=== PATIENT | male | born 1935 | race African-American/Black ===

== ENCOUNTER 2017-06-09 16:31 | Inpatient (IN) | payer OTHER ==
[~2017-06-09] VITALS: Ht 180.3 cm; Wt 129.3 kg
[~2017-06-09 16:31] MED LIST: ASPI-612 PO; BUDE10.2 IH; DUTA0.5C PO; LISI40TA PO; TERA10CA3 PO; THEO400T2 PO
[2017-06-09] MEDS ORDERED: IV NORMAL SALINE 1000ML BAG 1,000 ML IV SCH (16:34)
[2017-06-09] MEDS ORDERED: MORPHINE SULFATE 4 MG/ML DISP.SYRIN. IV/SQ PRN (16:45)
[2017-06-09] MEDS ORDERED: ONDANSETRON PF 4 MG/2 ML VIAL. IV ONE (16:45)
[2017-06-09] MEDS ORDERED: ASPIRIN CHEWABLE 81 MG TABLET. PO ONE (16:45)
[2017-06-09] MEDS ORDERED: dilTIAZem IV PUSH 25 MG/5 ML VIAL ONE (16:47)
--- NOTE | 2017-06-09 16:53 | PHYS DOC ---
Past Medical History Past Medical History: Asthma, Hypertension, Other Additional Past Medical Histor: enlarged prostate Past Surgical History: Cholecystectomy Alcohol Use: None Drug Use: None Adult General Chief Complaint Chief Complaint: CHEST PAIN HPI HPI Patient is a 81 year old male who presents with a 5 day history of shortness of air and chest pain. The patient denies history of atrial fibrillation although his EKG is showing intermittent atrial fibrillation with periods of normal sinus rhythm interspersed with age of fibrillation. The patient reports history of asthma and hypertension but denies previous cardiac history or history of facial for ventilation. The patient's primary care physician is Dr. Ayala over for Dr. Bradshaw. The patient denies nausea, vomiting, fevers or chills. The patient denies missing any of his home meds. This reports chest pain is substernal. The patient denies radiation of the chest pain. The patient reports the dyspnea and chest pain are worse when he is exerting himself and better when he is at rest. Review of Systems Review of Systems Constitutional: Denies fever or chills [] Eyes: Denies change in visual acuity, redness, or eye pain [] HENT: Denies nasal congestion or sore throat [] Respiratory: Denies cough or shortness of breath [] Cardiovascular: No additional information not addressed in HPI [] GI: Denies abdominal pain, nausea, vomiting, bloody stools or diarrhea [] : Denies dysuria or hematuria [] Musculoskeletal: Denies back pain or joint pain [] Integument: Denies rash or skin lesions [] Neurologic: Denies headache, focal weakness or sensory changes [] Endocrine: Denies polyuria or polydipsia [] Current Medications Current Medications Current Medications Medications (Trade) Dose Ordered Sig/Hillary Start Time Stop Time Status Last Admin Dose Admin Acetaminophen (Tylenol) 650 mg PRN Q4HRS PRN 06/09/17 18:30 06/10/17 18:29 Aspirin (Children'S Aspirin) 324 mg 1X ONCE 06/09/17 16:45 06/09/17 16:46 DC 06/09/17 16:53 324 MG Diltiazem HCl (Cardizem) 25 mg STK-MED ONCE 06/09/17 16:47 06/09/17 16:48 DC Diltiazem HCl 125 mg/Dextrose 125 ml @ 0 mls/hr CONT PRN 06/09/17 18:30 06/09/17 18:43 0 MLS/HR Furosemide (Lasix) 40 mg 1X ONCE 06/09/17 18:30 06/09/17 18:31 DC 06/09/17 18:44 40 MG Morphine Sulfate 4 mg PRN Q2HR PRN 06/09/17 18:30 06/10/17 18:29 Nitroglycerin (Nitro-Bid Oint) 1 inch 1X ONCE 06/09/17 18:30 06/09/17 18:31 DC 06/09/17 20:26 1 INCH Nitroglycerin (Nitrostat) 0.4 mg PRN Q5MIN PRN 06/09/17 18:30 06/10/17 18:29 Ondansetron HCl (Zofran) 4 mg PRN Q8HRS PRN 06/09/17 18:30 06/10/17 18:29 Sodium Chloride 1,000 ml @ 1,000 mls/hr Q1H 06/09/17 16:34 06/09/17 17:33 DC 06/09/17 16:53 1,000 MLS/HR Allergies Allergies Allergies Coded Allergies Type Severity Reaction Last Updated Verified No Known Drug Allergies 09/03/14 No Physical Exam Physical Exam Constitutional: Well developed, well nourished, no acute distress, non-toxic appearance. [] HENT: Normocephalic, atraumatic, bilateral external ears normal, oropharynx moist, no oral exudates, nose normal. [] Eyes: PERRLA, EOMI, conjunctiva normal, no discharge. [] Neck: Normal range of motion, no tenderness, supple, no stridor. [] Cardiovascular:Heart rate regular rhythm, no murmur [] Lungs & Thorax: Bilateral breath sounds clear to auscultation [] Abdomen: Bowel sounds normal, soft, no tenderness, no masses, no pulsatile masses. [] Skin: Warm, dry, no erythema, no rash. [] Back: No tenderness, no CVA tenderness. [] Extremities: No tenderness, no cyanosis, no clubbing, ROM intact, no edema. [] Neurologic: Alert and oriented X 3, normal motor function, normal sensory function, no focal deficits noted. [] Psychologic: Affect normal, judgement normal, mood normal. [] Current Patient Data Vital Signs Vital Signs Date Time Temp Pulse Resp B/P (MAP) Pulse Ox O2 Delivery O2 Flow Rate FiO2 06/09/17 18:00 72 172/97 (122) 96 06/09/17 17:35 16 Room Air 06/09/17 16:52 99.0 2.0 99.0 Lab Values Laboratory Tests Test 06/09/17 16:40 06/09/17 16:48 White Blood Count 7.2 x10^3/uL (4.0-11.0) Red Blood Count 4.91 x10^6/uL (4.30-5.70) Hemoglobin 14.2 g/dL (13.0-17.5) Hematocrit 44.3 % (39.0-53.0) Mean Corpuscular Volume 90 fL (79-100) Mean Corpuscular Hemoglobin 29 pg (25-35) Mean Corpuscular Hemoglobin Concent 32 g/dL (31-37) Red Cell Distribution Width 13.9 % (11.5-14.5) Platelet Count 205 x10^3/uL (140-400) Neutrophils (%) (Auto) 67 % (31-73) Lymphocytes (%) (Auto) 18 % (24-48) L Monocytes (%) (Auto) 11 % (0-9) H Eosinophils (%) (Auto) 3 % (0-3) Basophils (%) (Auto) 1 % (0-3) Neutrophils # (Auto) 4.9 x10^3uL (1.8-7.7) Lymphocytes # (Auto) 1.3 x10^3/uL (1.0-4.8) Monocytes # (Auto) 0.8 x10^3/uL (0.0-1.1) Eosinophils # (Auto) 0.2 x10^3/uL (0.0-0.7) Basophils # (Auto) 0.0 x10^3/uL (0.0-0.2) Prothrombin Time 12.8 SEC (11.7-14.0) Prothrombin Time INR 1.0 (0.8-1.1) Sodium Level 141 mmol/L (136-145) Potassium Level 3.7 mmol/L (3.5-5.1) Chloride Level 102 mmol/L (98-107) Carbon Dioxide Level 33 mmol/L (21-32) H Anion Gap 6 (6-14) 14 mmol/L (6-14) Blood Urea Nitrogen 11 mg/dL (8-26) Creatinine 1.3 mg/dL (0.7-1.3) Estimated GFR (Cockcroft-Gault) 63.9 BUN/Creatinine Ratio 8 (6-20) Glucose Level 102 mg/dL (70-99) H 100 mg/dL (70-99) H Calcium Level 9.3 mg/dL (8.5-10.1) Magnesium Level 2.0 mg/dL (1.8-2.4) Total Bilirubin 0.7 mg/dL (0.2-1.0) Aspartate Amino Transferase (AST) 26 U/L (15-37) Alanine Aminotransferase (ALT) 18 U/L (16-63) Alkaline Phosphatase 75 U/L (46-116) Creatine Kinase 421 U/L (39-308) H Creatine Kinase MB (Mass) 2.1 ng/mL (0.0-3.6) Creatine Kinase MB Relative Index 0.5 % (0-4) Troponin I Quantitative 0.036 ng/mL (0.000-0.055) OX-Lfw-B-Type Natriuretic Peptide 271 pg/mL (0-449) Total Protein 7.7 g/dL (6.4-8.2) Albumin 3.8 g/dL (3.4-5.0) Albumin/Globulin Ratio 1.0 (1.0-1.7) POC Hemoglobin 15.6 g/dL (14-18) POC Hematocrit 46 % (37-52) POC Sodium 141 mmol/L (135-145) POC Potassium 3.8 mmol/L (3.5-5.0) POC Chloride 101 mmol/L (98-110) POC Total CO2 31 mmol/L (23-32) POC Blood Urea Nitrogen 9 mg/dL (8-26) POC Creatinine 1.3 mg/dL (0.5-1.4) POC Ionized Calcium (Kortney) 1.22 mmol/L (1.13-1.32) POC Troponin I 0.03 ng/ml (<0.08) Laboratory Tests 06/09/17 16:40 Laboratory Tests 06/09/17 16:40 06/09/17 16:48 EKG EKG EKG read at 4:37 PM on June 09, 2017 displays a regular rhythm at each of fibrillation with interspersed normal sinus rhythm. The heart rate is 104 bpm the QRS duration is 92 ms The patient's rhythm strip during my history and physical on approximately 4:52 PM displays normal sinus rhythm with very infrequent episodes of each of fibrillation. interpreted by Dr. Harden and Mirela Radiology/Procedures Radiology/Procedures Chest x-ray displays increased lung markings and mild cardiomegaly consistent with acute diastolic congestive heart failure[] Course & Med Decision Making Course & Med Decision Making Pertinent Labs and Imaging studies reviewed. (See chart for details) The patient works improvement with diltiazem drip and oxygen therapies.[] Dragon Disclaimer Dragon Disclaimer This electronic medical record was generated, in whole or in part, using a voice recognition dictation system. Departure Departure Impression: Primary Impression: Atrial fibrillation with rapid ventricular response Additional Impressions: Elevated troponin I level Chest pain Disposition: ADMITTED INPATIENT Admitting Physician: Ruby Tate Condition: STABLE Referrals: UNKNOWN PCP NAME (PCP) Problem Qualifiers FORD PARSON MD Jun 09, 2017 16:53
[2017-06-09 17:00] LABS: BASO % 1 % (0-3); EOS % 3 % (0-3); HEMATOCRIT 44.3 % (39.0-53.0); HEMOGLOBIN 14.2 g/dL (13.0-17.5); LYMPH # 1.3 x10^3/uL (1.0-4.8); LYMPH % 18 % (24-48); MEAN CORPUSCULAR HEMOGLOBIN 29 pg (25-35); MEAN CORPUSCULAR HGB CONC 32 g/dL (31-37); MEAN CORPUSCULAR VOLUME 90 fL (79-100); MONO % 11 % (0-9); NEUT % 67 % (31-73); PLATELET COUNT 205 x10^3/uL (140-400); RED BLOOD COUNT 4.91 x10^6/uL (4.30-5.70); RED CELL DISTRIBUTION WIDTH 13.9 % (11.5-14.5); WHITE BLOOD COUNT 7.2 x10^3/uL (4.0-11.0)
[2017-06-09 17:09] LABS: PROTHROMBIN TIME PATIENT 12.8 SEC (11.7-14.0)
[2017-06-09 17:22] LABS: ALBUMIN 3.8 g/dL (3.4-5.0); CALCIUM 9.3 mg/dL (8.5-10.1); CREATININE 1.3 mg/dL (0.7-1.3); GFR 63.9; POTASSIUM 3.7 mmol/L (3.5-5.1); TOTAL BILIRUBIN 0.7 mg/dL (0.2-1.0); TOTAL PROTEIN 7.7 g/dL (6.4-8.2)
[2017-06-09 17:32] LABS: CKMB MASS 2.1 ng/mL (0.0-3.6)
[2017-06-09 17:36] LABS: POTASSIUM ISTAT 3.8 mmol/L (3.5-5.0)
[2017-06-09] MEDS ORDERED: ONDANSETRON PF 4 MG/2 ML VIAL. IV PRN (18:30)
[2017-06-09] MEDS ORDERED: MORPHINE SULFATE 4 MG/ML DISP.SYRIN. IV PRN (18:30)
[2017-06-09] MEDS ORDERED: NITROGLYCERIN SUBLINGUAL 0.4 MG BOTTLE OF 25. SL PRN (18:30)
[2017-06-09] MEDS ORDERED: NITROGLYCERIN OINT 1 GM PACKET. TP ONE (18:30)
[2017-06-09] MEDS ORDERED: FUROSEMIDE 40 MG TABLET. PO ONE (18:30)
[2017-06-09] MEDS ORDERED: ACETAMINOPHEN 325 MG TABLET. PO PRN (18:30)
[2017-06-09] MEDS ORDERED: IPRATRPIUM/ALBUTEROL 0.5/2.5MG 3 ML NEBU. NEB SCH (20:00)
[2017-06-09 20:51] VITALS: BP 150/90
[2017-06-09 21:30] VITALS: BP 145/80
[2017-06-09 22:30] VITALS: BP 148/84
[2017-06-09] MEDS ORDERED: THEOPHYLLINE ANHYDROUS 200 MG PO SCH (22:45)
--- NOTE | 2017-06-09 22:49 | PDOC1 ---
History and Physical Date of Admission Date of Admission DATE: 06/09/17 TIME: 22:38 History of Present Illness History of Present Illness MR. Masterson, is a 81 year old male admit with worsening shortness of air and chest pain. Pain has worsened over 5 days, seen having Afib in the ER. The patient denies history of atrial fibrillation alt with sinus. Pain improved now on the floor The patient reports history of asthma and hypertension but denies previous cardiac history or history of facial for ventilation. PCP is Dr. Reyez reports chest pain is substernal w/o radiation was 5/10, mostly gone. 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 Past Medical History Cardiovascular: HTN Pulmonary: Asthma ENT: No pertinent hx Renal/: No pertinent hx Endocrine: No pertinent hx Past Surgical History Past Surgical History: Cholecystectomy Family History Family History: Heart Disease, Hypertension Social History Smoke: No ALCOHOL: none Drugs: None Current Problem List Problem List Problems Medical Problems: (1) Atrial fibrillation with rapid ventricular response Status: Acute (2) Chest pain Status: Acute (3) Elevated troponin I level Status: Acute Problems: Current Medications Current Medications Current Medications Aspirin (Children'S Aspirin) 324 mg 1X ONCE PO Last administered on 16:53; Start 06/09/17 at 16:45; Stop 06/09/17 at 16:46; Status DC Morphine Sulfate 4 mg PRN Q15MIN PRN IV/SQ PAIN GREATER THAN 3/10 Last administered on 06/09/17 16:54; Start 06/09/17 at 16:45; Stop 06/10/17 at 16 :44 Sodium Chloride 1,000 ml @ 1,000 mls/hr Q1H IV Last administered on 16:53; Start 06/09/17 at 16:34; Stop 06/09/17 at 17:33; Status DC Ondansetron HCl (Zofran) 8 mg 1X ONCE IV Last administered on 06/09/17 16:53 ; Start 06/09/17 at 16:45; Stop 06/09/17 at 16:46; Status DC Diltiazem HCl (Cardizem) 25 mg STK-MED ONCE .ROUTE ; Start 06/09/17 at 16:47; Stop 06/09/17 at 16:48; Status DC Ondansetron HCl (Zofran) 4 mg PRN Q8HRS PRN IV NAUSEA/VOMITING; Start at 18:30; Stop 06/10/17 at 18:29 Morphine Sulfate 4 mg PRN Q2HR PRN IV PAIN; Start 06/09/17 at 18:30; Stop at 18:29 Acetaminophen (Tylenol) 650 mg PRN Q4HRS PRN PO FEVER; Start 06/09/17 at 18:30 ; Stop 06/10/17 at 18:29 Nitroglycerin (Nitrostat) 0.4 mg PRN Q5MIN PRN SL CHEST PAIN; Start 06/09/17 at 18:30; Stop 06/10/17 at 18:29 Albuterol/ Ipratropium (Duoneb) 3 ml RTQID NEB Last administered on 06/09/17 20:56; Start 06/09/17 at 20:00; Stop 06/10/17 at 19:59 Furosemide (Lasix) 40 mg 1X ONCE PO Last administered on 06/09/17 18:44; Start 06/09/17 at 18:30; Stop 06/09/17 at 18:31; Status DC Nitroglycerin (Nitro-Bid Oint) 1 inch 1X ONCE TP Last administered on 20:26; Start 06/09/17 at 18:30; Stop 06/09/17 at 18:31; Status DC Diltiazem HCl 125 mg/Dextrose 125 ml @ 0 mls/hr CONT PRN IV SEE I/O RECORD Last administered on 06/09/17 18:43; Start 06/09/17 at 18:30 Active Scripts Active Aspirin Ec (Aspirin) 81 Mg Tablet. 1 Tab PO DAILY Reported Avodart (Dutasteride) 0.5 Mg Capsule 1 Cap PO DAILY Terazosin Hcl 10 Mg Capsule 1 Cap PO DAILY Lisinopril 40 Mg Tablet 1 Tab PO DAILY Theophylline (Theophylline Anhydrous) 400 Mg Tablet.er 200 Mg PO TWICE DAILY Symbicort 160-4.5 Mcg Inhaler (Budesonide/Formoterol Fumarate) 10.2 Gm Hfa.aer.ad 2 Puff IH BID Allergies Allergies: Coded Allergies: No Known Drug Allergies (Unverified , 1/19/15) ROS Review of System The patient denies nausea, vomiting, fevers or chills. General: YES: Fatigue, No: Chills, Night Sweats, Malaise, Appetite, Other PSYCHOLOGICAL ROS: No: Anxiety, Behavioral Disorder, Concentration difficultie , Decreased libido, Depression, Disorientation, Hallucinations, Hostility, Irritablity, Memory difficulties, Mood Swings, Obsessive thoughts, Suicidal ideation, Other Eyes: No Blurry vision, No Decreased vision, No Double vision, No Dry eyes, No Excessive tearing, No Eye Pain, No Itchy Eyes, No Loss of vision, No Photophobia , No Scotomata, No Uses contacts, No Uses glasses, No Other HEENT: No: Heacaches, Visual Changes, Hearing change, Nasal congestion, Nasal discharge, Oral lesions, Sinus pain, Sore Throat, Epistaxis, Sneezing, Snoring, Tinnitus, Vertigo, Vocal changes, Other Hematological and Lymphatic: No: Bleeding Problems, Blood Clots, Blood Transfusions, Brusing, Night Sweats, Pallor, Swollen Lymph Nodes, Other Respiratory: No: Cough, Hemoptysis, Orthopnea, Pleuritic Pain, Shortness of breath, SOB with excertion, Sputum Changes, Stridor, Tachypnea, Wheezing, Other Cardiovascular: yes Chest Pain, yes Palpitations, No Orthopnea, No Paroxysmal Noc. Dyspnea, No Edema, No Lt Headedness, No Other Gastrointestinal: No Nausea, No Vomiting, No Abdominal Pain, No Diarrhea, No Constipation, No Melena, No Hematochezia, No Other Genitourinary: No Dysuria, No Frequency, No Incontinence, No Hematuria, No Retention, No Discharge, No Urgency, No Pain, No Flank Pain, No Other, No , No , No , No , No , No , No Musculoskeletal: Yes Joint Stiffness, No Gait Disturbance, No Joint Pain, No Joint Swelling, No Muscle Pain, No Muscular Weakness, No Pain In:, No Swelling In:, No Other Skin: No Dry Skin, No Eczema, No Hair Changes, No Lumps, No Mole Changes, No Mottling, No Nail Changes, No Pruritus, No Rash, No Skin Lesion Changes, No Other, No Acne Physical Exam General: Alert, Oriented X3, Cooperative, No acute distress HEENT: Atraumatic, PERRLA, EOMI Lungs: Clear to auscultation, Normal air movement Heart: no gallops, no murmurs Extremities: No edema, Normal pulses Skin: No significant lesion Neuro: Normal tone, Sensation intact Psych/Mental Status: Mental status NL, Mood NL Vitals Vitals Vital Signs Date Time Temp Pulse Resp B/P (MAP) Pulse Ox O2 Delivery O2 Flow Rate FiO2 06/09/17 20:58 97 Nasal Cannula 2.0 06/09/17 20:51 98.2 59 20 150/90 (110) 98.2 Labs Labs Laboratory Tests Test 06/09/17 16:40 06/09/17 16:48 White Blood Count 7.2 x10^3/uL (4.0-11.0) Red Blood Count 4.91 x10^6/uL (4.30-5.70) Hemoglobin 14.2 g/dL (13.0-17.5) Hematocrit 44.3 % (39.0-53.0) Mean Corpuscular Volume 90 fL (79-100) Mean Corpuscular Hemoglobin 29 pg (25-35) Mean Corpuscular Hemoglobin Concent 32 g/dL (31-37) Red Cell Distribution Width 13.9 % (11.5-14.5) Platelet Count 205 x10^3/uL (140-400) Neutrophils (%) (Auto) 67 % (31-73) Lymphocytes (%) (Auto) 18 % (24-48) Monocytes (%) (Auto) 11 % (0-9) Eosinophils (%) (Auto) 3 % (0-3) Basophils (%) (Auto) 1 % (0-3) Neutrophils # (Auto) 4.9 x10^3uL (1.8-7.7) Lymphocytes # (Auto) 1.3 x10^3/uL (1.0-4.8) Monocytes # (Auto) 0.8 x10^3/uL (0.0-1.1) Eosinophils # (Auto) 0.2 x10^3/uL (0.0-0.7) Basophils # (Auto) 0.0 x10^3/uL (0.0-0.2) Prothrombin Time 12.8 SEC (11.7-14.0) Prothromb Time International Ratio 1.0 (0.8-1.1) Sodium Level 141 mmol/L (136-145) Potassium Level 3.7 mmol/L (3.5-5.1) Chloride Level 102 mmol/L (98-107) Carbon Dioxide Level 33 mmol/L (21-32) Anion Gap 6 (6-14) 14 mmol/L (6-14) Blood Urea Nitrogen 11 mg/dL (8-26) Creatinine 1.3 mg/dL (0.7-1.3) Estimated GFR (Cockcroft-Gault) 63.9 BUN/Creatinine Ratio 8 (6-20) Glucose Level 102 mg/dL (70-99) 100 mg/dL (70-99) Calcium Level 9.3 mg/dL (8.5-10.1) Magnesium Level 2.0 mg/dL (1.8-2.4) Total Bilirubin 0.7 mg/dL (0.2-1.0) Aspartate Amino Transf (AST/SGOT) 26 U/L (15-37) Alanine Aminotransferase (ALT/SGPT) 18 U/L (16-63) Alkaline Phosphatase 75 U/L (46-116) Creatine Kinase 421 U/L (39-308) Creatine Kinase MB (Mass) 2.1 ng/mL (0.0-3.6) Creatine Kinase MB Relative Index 0.5 % (0-4) Troponin I Quantitative 0.036 ng/mL (0.000-0.055) PD-Dsq-M-Type Natriuretic Peptide 271 pg/mL (0-449) Total Protein 7.7 g/dL (6.4-8.2) Albumin 3.8 g/dL (3.4-5.0) Albumin/Globulin Ratio 1.0 (1.0-1.7) Bedside Hemoglobin 15.6 g/dL (14-18) Bedside Hematocrit 46 % (37-52) Bedside Sodium 141 mmol/L (135-145) Bedside Potassium 3.8 mmol/L (3.5-5.0) Bedside Chloride 101 mmol/L (98-110) Bedside Total CO2 31 mmol/L (23-32) Bedside Blood Urea Nitrogen 9 mg/dL (8-26) Bedside Creatinine 1.3 mg/dL (0.5-1.4) Bedside Ionized Calcium (Kortney) 1.22 mmol/L (1.13-1.32) Bedside Troponin I 0.03 ng/ml (<0.08) Laboratory Tests Test 06/09/17 16:40 06/09/17 16:48 White Blood Count 7.2 x10^3/uL (4.0-11.0) Red Blood Count 4.91 x10^6/uL (4.30-5.70) Hemoglobin 14.2 g/dL (13.0-17.5) Hematocrit 44.3 % (39.0-53.0) Mean Corpuscular Volume 90 fL (79-100) Mean Corpuscular Hemoglobin 29 pg (25-35) Mean Corpuscular Hemoglobin Concent 32 g/dL (31-37) Red Cell Distribution Width 13.9 % (11.5-14.5) Platelet Count 205 x10^3/uL (140-400) Neutrophils (%) (Auto) 67 % (31-73) Lymphocytes (%) (Auto) 18 % (24-48) Monocytes (%) (Auto) 11 % (0-9) Eosinophils (%) (Auto) 3 % (0-3) Basophils (%) (Auto) 1 % (0-3) Neutrophils # (Auto) 4.9 x10^3uL (1.8-7.7) Lymphocytes # (Auto) 1.3 x10^3/uL (1.0-4.8) Monocytes # (Auto) 0.8 x10^3/uL (0.0-1.1) Eosinophils # (Auto) 0.2 x10^3/uL (0.0-0.7) Basophils # (Auto) 0.0 x10^3/uL (0.0-0.2) Prothrombin Time 12.8 SEC (11.7-14.0) Prothromb Time International Ratio 1.0 (0.8-1.1) Sodium Level 141 mmol/L (136-145) Potassium Level 3.7 mmol/L (3.5-5.1) Chloride Level 102 mmol/L (98-107) Carbon Dioxide Level 33 mmol/L (21-32) Anion Gap 6 (6-14) 14 mmol/L (6-14) Blood Urea Nitrogen 11 mg/dL (8-26) Creatinine 1.3 mg/dL (0.7-1.3) Estimated GFR (Cockcroft-Gault) 63.9 BUN/Creatinine Ratio 8 (6-20) Glucose Level 102 mg/dL (70-99) 100 mg/dL (70-99) Calcium Level 9.3 mg/dL (8.5-10.1) Magnesium Level 2.0 mg/dL (1.8-2.4) Total Bilirubin 0.7 mg/dL (0.2-1.0) Aspartate Amino Transf (AST/SGOT) 26 U/L (15-37) Alanine Aminotransferase (ALT/SGPT) 18 U/L (16-63) Alkaline Phosphatase 75 U/L (46-116) Creatine Kinase 421 U/L (39-308) Creatine Kinase MB (Mass) 2.1 ng/mL (0.0-3.6) Creatine Kinase MB Relative Index 0.5 % (0-4) Troponin I Quantitative 0.036 ng/mL (0.000-0.055) ZX-Lkq-R-Type Natriuretic Peptide 271 pg/mL (0-449) Total Protein 7.7 g/dL (6.4-8.2) Albumin 3.8 g/dL (3.4-5.0) Albumin/Globulin Ratio 1.0 (1.0-1.7) Bedside Hemoglobin 15.6 g/dL (14-18) Bedside Hematocrit 46 % (37-52) Bedside Sodium 141 mmol/L (135-145) Bedside Potassium 3.8 mmol/L (3.5-5.0) Bedside Chloride 101 mmol/L (98-110) Bedside Total CO2 31 mmol/L (23-32) Bedside Blood Urea Nitrogen 9 mg/dL (8-26) Bedside Creatinine 1.3 mg/dL (0.5-1.4) Bedside Ionized Calcium (Kortney) 1.22 mmol/L (1.13-1.32) Bedside Troponin I 0.03 ng/ml (<0.08) VTE Prophylaxis Ordered VTE Prophylaxis Devices: Yes VTE Pharmacological Prophylaxi: No Assessment/Plan Assessment/Plan acute chest pain afib RVR acute distolic CHF, ROLAND YOUNG MD Jun 09, 2017 22:49
[2017-06-09] MEDS ORDERED: ALBUTEROL SULFATE 2.5 MG/3 ML NEBU. NEB PRN (23:00)
[2017-06-09 23:48] VITALS: BP 170/85
[2017-06-10] VITALS (10 sets, daily range): BP systolic 139–169; BP diastolic 68–95
[2017-06-10 07:11] LABS: BASO % 1 % (0-3); EOS % 1 % (0-3); HEMATOCRIT 42.4 % (39.0-53.0); HEMOGLOBIN 13.6 g/dL (13.0-17.5); LYMPH # 0.7 x10^3/uL (1.0-4.8); LYMPH % 10 % (24-48); MEAN CORPUSCULAR HEMOGLOBIN 29 pg (25-35); MEAN CORPUSCULAR HGB CONC 32 g/dL (31-37); MEAN CORPUSCULAR VOLUME 91 fL (79-100); MONO % 8 % (0-9); NEUT % 80 % (31-73); PLATELET COUNT 192 x10^3/uL (140-400); RED BLOOD COUNT 4.68 x10^6/uL (4.30-5.70); RED CELL DISTRIBUTION WIDTH 13.9 % (11.5-14.5); WHITE BLOOD COUNT 7.3 x10^3/uL (4.0-11.0)
--- NOTE | 2017-06-10 07:25 | EKG ---
[facility] [address] [place] [address] Test Date: 2017-06-09 Test Time: 16:36:00 Pat Name: TYRELL CHENG Department: Room: 201 1 Gender: M Picker / Packer: : [phone] Requested By: FORD PARSON Order Number: [id number] Reading MD: Laura Beavers Measurements Intervals [place] Rate: 104 P: AK: QRS: -38 QRSD: 92 T: 77 QT: 326 QTc: 429 Interpretive Statements SINUS RHYTHM PROXYSMAL ATRIAL TACHYCARDIA ABNORMAL LEFT AXIS DEVIATION LEFT ANTERIOR FASCICULAR BLOCK QRS(T) CONTOUR ABNORMALITY CONSIDER ANTEROSEPTAL MYOCARDIAL DAMAGE ST & T ABNORMALITY, CONSIDER HIGH LATERAL ISCHEMIA ABNORMAL ECG Electronically Signed On 06-12-2017 14:47:50 CDT by Laura Beavers
[2017-06-10 07:26] LABS: ALBUMIN 3.5 g/dL (3.4-5.0); ALBUMIN/GLOBULIN RATIO 1.1 (1.0-1.7); CALCIUM 8.9 mg/dL (8.5-10.1); CREATININE 1.3 mg/dL (0.7-1.3); GFR 63.9; POTASSIUM 4.6 mmol/L (3.5-5.1); TOTAL BILIRUBIN 0.8 mg/dL (0.2-1.0); TOTAL PROTEIN 6.8 g/dL (6.4-8.2)
[2017-06-10] MEDS: IPRATRPIUM/ALBUTEROL 0.5/2.5MG 3 ML NEBU. NEB SCH ×4 (07:29→20:08)
[2017-06-10] MEDS: BUDESONIDE 0.5 MG/2 ML NEBU. NEB SCH ×2 (08:00→20:08)
--- NOTE | 2017-06-10 08:17 | RAD ---
Portable chest, 06/09/2017: History: Chest pain, epigastric pain Comparison is made to a study from 09/03/2014. The heart is mildly enlarged. There is calcific plaquing and tortuosity of the thoracic aorta. The pulmonary vascularity is at the upper limits of normal. There is loss of definition of the left hemidiaphragm, similar to that seen on the previous exam. The portable technique and a prominent epicardial fat pad is probably contributing to this appearance. Mild left basilar atelectasis/infiltrate cannot be excluded. The lungs are otherwise clear. There is no evidence of pleural fluid. IMPRESSION: 1. Mild cardiomegaly and aortic atherosclerosis. 2. Borderline vascular congestion.
[2017-06-10] MEDS: THEOPHYLLINE 12HR ER 300 MG TAB.ER.12H. PO SCH ×2 (09:00→20:40)
--- NOTE | 2017-06-10 09:13 | CARD ---
APPROVED REPORT EXAM: Two-dimensional and M-mode echocardiogram with Doppler and color Doppler. Other Information Quality : Average Rhythm : NSR INDICATION Atrial Fibrillation Hypertension/HCVD 2D DIMENSIONS RVDd3.8 (2.9-3.5cm)Left Atrium(2D)3.3 (1.6-4.0cm) IVSd1.3 (0.7-1.1cm)Aortic Root(2D)3.7 (2.0-3.7cm) LVDd4.7 (3.9-5.9cm)LVOT Diameter2.5 (1.8-2.4cm) PWd1.3 (0.7-1.1cm)LVDs3.4 (2.5-4.0cm) FS (%) 27.6 %SV53.7 ml LVEF(%)53.6 (>50%) Aortic Valve AoV Peak Hemal.157.9cm/sAoV VTI25.9cm AO Peak GR.10.0mmHgLVOT VTI 18.02cm AO Mean GR.7mmHgAVA (VTI)3.40cm2 Mitral Valve MV E Mlqhfxof15.5cm/sMV E Peak Gr.1mmHg MV DECEL [id number] A Oeadmvwj44.5cm/s MV OIX29duC/A Ratio1.0 MV A [id number] (PHT)3.55cm2 TDI Lateral E' P. V7.40cm/sMedial E' P. V7.20cm/s E/Lateral E'8.9E/Medial E'9.1 Tricuspid Valve TR P. Afosbsuj292lh/sRAP [id number] TR Peak Gr.74dpWfUDQJ15auPy LEFT VENTRICLE The left ventricle is normal size. There is borderline to mild concentric left ventricular hypertroph y. Left ventricle systolic function is normal. The Ejection Fraction is 50-55%. There is normal LV se gmental wall motion. The left ventricular diastolic function and filling is normal for age. RIGHT VENTRICLE The right ventricle is normal size. The right ventricular systolic function is normal. ATRIA The left atrium size is normal. The right atrium size is normal. The interatrial septum is intact wit h no evidence for an atrial septal defect or patent foramen ovale as noted on 2-D or Doppler imaging. AORTIC VALVE The aortic valve is normal in structure and function. The aortic valve is trileaflet. Doppler and Col or Flow revealed no significant aortic regurgitation. There is no significant aortic valvular stenosi s. MITRAL VALVE The mitral valve is normal in structure and function. There is no mitral valve stenosis. Doppler and Color Flow revealed mild mitral regurgitation. TRICUSPID VALVE The tricuspid valve is normal in structure and function. Doppler and Color Flow revealed trace tricus pid regurgitation. The PA pressure was estimated at 26 mmHg. There is no tricuspid valve stenosis. PULMONIC VALVE The pulmonic valve is not well visualized. Doppler and Color Flow revealed no pulmonic valvular regur gitation. There is no pulmonic valvular stenosis. 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 The IVC is normal in size and collapses >50% with inspiration. PERICARDIAL EFFUSION There is no evidence of significant pericardial effusion. Critical Notification Critical Value: No <Conclusion> There is borderline to mild concentric left ventricular hypertrophy. Left ventricle systolic function is normal. The Ejection Fraction is 50-55%. There is normal LV segmental wall motion. 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
--- NOTE | 2017-06-10 10:12 | PDOC2 ---
VICKI BECKFORD AIR BRAKE RIGGER 06/10/17 1012: CARDIAC CONSULT DATE OF CONSULT Date of Consult DATE: 06/10/17 TIME: 09:22 REASON FOR CONSULT Reason for Consult: PAFIB REFERRING PHYSICIAN Referring Physician: Bebeto SOURCE Source: Chart review, Patient HISTORY OF PRESENT ILLNESS HISTORY OF PRESENT ILLNESS This is a pleasant 81 yo male admitted for complains of CP. Reports that it felt like he was shaking and nonradiating. It was achy as he described it and no prior ischemic workup and does not follow any operator assistant i cementing. He has been having intermittent episodes of this and yesterday lasted about 20 minutes to which it was associated with SOA. Possible nausea but otherwise no frequent dizziness. He is positive for MCCLAIN. Denies any prior falls, injury, syncope, CAD , VTE, PUD, CVA. Also reports that his Asthma is well controlled. PAST MEDICAL HISTORY Cardiovascular: HTN, Other (palpitations) Pulmonary: Asthma CENTRAL NERVOUS SYSTEM: Other (No pertinent history) GI: No pertinent hx Heme/Onc: No pertinent hx Hepatobiliary: No pertinent hx Psych: No pertinent hx Musculoskeletal: Osteoarthritis Rheumatologic: No pertinent hx Infectious disease: No pertinent hx ENT: No pertinent hx Renal/: Benign prostatic enlarg. Endocrine: No pertinent hx Dermatology: No pertinent hx PAST SURGICAL HISTORY Past Surgical History: Cholecystectomy FAMILY HISTORY Family History: Coronary Artery Disease (father), Stroke (brother and sister) SOCIAL HISTORY Smoke: Quit (very remote) ALCOHOL: none Drugs: None Lives: with Family CURRENT MEDICATIONS CURRENT MEDICATIONS Current Medications Medications (Trade) Dose Ordered Sig/Hillary Route PRN Reason Start Time Stop Time Status Last Admin Dose Admin Aspirin (Children'S Aspirin) 324 mg 1X ONCE PO 06/09/17 16:45 06/09/17 16:46 DC 06/09/17 16:53 Morphine Sulfate 4 mg PRN Q15MIN PRN IV/SQ PAIN GREATER THAN 3/10 06/09/17 16:45 06/10/17 16:44 06/09/17 16:54 Sodium Chloride 1,000 ml @ 1,000 mls/hr Q1H IV 06/09/17 16:34 06/09/17 17:33 DC 06/09/17 16:53 Ondansetron HCl (Zofran) 8 mg 1X ONCE IV 06/09/17 16:45 06/09/17 16:46 DC 06/09/17 16:53 Albuterol/ Ipratropium (Duoneb) 3 ml RTQID NEB 06/09/17 20:00 06/09/17 22:49 DC 06/09/17 20:56 Furosemide (Lasix) 40 mg 1X ONCE PO 06/09/17 18:30 06/09/17 18:31 DC 06/09/17 18:44 Nitroglycerin (Nitro-Bid Oint) 1 inch 1X ONCE TP 06/09/17 18:30 06/09/17 18:31 DC 06/09/17 20:26 Diltiazem HCl 125 mg/Dextrose 125 ml @ 0 mls/hr CONT PRN IV SEE I/O RECORD 06/09/17 18:30 06/09/17 18:43 Budesonide (Pulmicort) 0.5 mg RTBID NEB 06/10/17 08:00 06/10/17 08:00 Albuterol/ Ipratropium (Duoneb) 3 ml RTQID NEB 06/10/17 08:00 06/10/17 07:29 ALLERGIES ALLERGIES: Coded Allergies: No Known Drug Allergies (Unverified , 09/03/14) ROS Review of System 14 point ROS evaluated with pertinent positives noted per HPI PHYSICAL EXAM General: Alert, Oriented X3, Cooperative, No acute distress HEENT: Atraumatic, Mucous membr. moist/pink Lungs: Clear to auscultation, Normal air movement Heart: Regular rate (SR), Normal S1, Normal S2, Other (2/6 systolic murmur to LLS border) Abdomen: Soft, No tenderness Extremities: No cyanosis, No edema Skin: No breakdown, No significant lesion Neuro: Normal speech, Sensation intact Psych/Mental Status: Mental status NL, Mood NL MUSCULOSKELETAL: Osteoarthritic changes both hands VITALS VITALS Vital Signs Date Time Temp Pulse Resp B/P (MAP) Pulse Ox O2 Delivery O2 Flow Rate FiO2 06/10/17 07:31 92 Nasal Cannula 3.0 06/10/17 06:29 139/68 (91) 06/10/17 05:29 72 06/09/17 23:48 98.0 20 98.0 LABS Lab: Laboratory Tests Test 06/09/17 16:40 06/09/17 16:48 06/09/17 23:50 10/26/17 06:35 White Blood Count 7.2 x10^3/uL (4.0-11.0) 7.3 x10^3/uL (4.0-11.0) Red Blood Count 4.91 x10^6/uL (4.30-5.70) 4.68 x10^6/uL (4.30-5.70) Hemoglobin 14.2 g/dL (13.0-17.5) 13.6 g/dL (13.0-17.5) Hematocrit 44.3 % (39.0-53.0) 42.4 % (39.0-53.0) Mean Corpuscular Volume 90 fL (79-100) 91 fL (79-100) Mean Corpuscular Hemoglobin 29 pg (25-35) 29 pg (25-35) Mean Corpuscular Hemoglobin Concent 32 g/dL (31-37) 32 g/dL (31-37) Red Cell Distribution Width 13.9 % (11.5-14.5) 13.9 % (11.5-14.5) Platelet Count 205 x10^3/uL (140-400) 192 x10^3/uL (140-400) Neutrophils (%) (Auto) 67 % (31-73) 80 % (31-73) Lymphocytes (%) (Auto) 18 % (24-48) 10 % (24-48) Monocytes (%) (Auto) 11 % (0-9) 8 % (0-9) Eosinophils (%) (Auto) 3 % (0-3) 1 % (0-3) Basophils (%) (Auto) 1 % (0-3) 1 % (0-3) Neutrophils # (Auto) 4.9 x10^3uL (1.8-7.7) 5.8 x10^3uL (1.8-7.7) Lymphocytes # (Auto) 1.3 x10^3/uL (1.0-4.8) 0.7 x10^3/uL (1.0-4.8) Monocytes # (Auto) 0.8 x10^3/uL (0.0-1.1) 0.6 x10^3/uL (0.0-1.1) Eosinophils # (Auto) 0.2 x10^3/uL (0.0-0.7) 0.1 x10^3/uL (0.0-0.7) Basophils # (Auto) 0.0 x10^3/uL (0.0-0.2) 0.0 x10^3/uL (0.0-0.2) Prothrombin Time 12.8 SEC (11.7-14.0) Prothromb Time International Ratio 1.0 (0.8-1.1) Sodium Level 141 mmol/L (136-145) 141 mmol/L (136-145) Potassium Level 3.7 mmol/L (3.5-5.1) 4.6 mmol/L (3.5-5.1) Chloride Level 102 mmol/L (98-107) 102 mmol/L (98-107) Carbon Dioxide Level 33 mmol/L (21-32) 36 mmol/L (21-32) Anion Gap 6 (6-14) 14 mmol/L (6-14) 3 (6-14) Blood Urea Nitrogen 11 mg/dL (8-26) 9 mg/dL (8-26) Creatinine 1.3 mg/dL (0.7-1.3) 1.3 mg/dL (0.7-1.3) Estimated GFR (Cockcroft-Gault) 63.9 63.9 BUN/Creatinine Ratio 8 (6-20) 7 (6-20) Glucose Level 102 mg/dL (70-99) 100 mg/dL (70-99) 105 mg/dL (70-99) Calcium Level 9.3 mg/dL (8.5-10.1) 8.9 mg/dL (8.5-10.1) Magnesium Level 2.0 mg/dL (1.8-2.4) Total Bilirubin 0.7 mg/dL (0.2-1.0) 0.8 mg/dL (0.2-1.0) Aspartate Amino Transf (AST/SGOT) 26 U/L (15-37) 23 U/L (15-37) Alanine Aminotransferase (ALT/SGPT) 18 U/L (16-63) 18 U/L (16-63) Alkaline Phosphatase 75 U/L (46-116) 67 U/L (46-116) Creatine Kinase 421 U/L (39-308) Creatine Kinase MB (Mass) 2.1 ng/mL (0.0-3.6) Creatine Kinase MB Relative Index 0.5 % (0-4) Troponin I Quantitative 0.036 ng/mL (0.000-0.055) 0.019 ng/mL (0.000-0.055) < 0.017 ng/mL (0.000-0.055) IP-Sex-I-Type Natriuretic Peptide 271 pg/mL (0-449) Total Protein 7.7 g/dL (6.4-8.2) 6.8 g/dL (6.4-8.2) Albumin 3.8 g/dL (3.4-5.0) 3.5 g/dL (3.4-5.0) Albumin/Globulin Ratio 1.0 (1.0-1.7) 1.1 (1.0-1.7) Bedside Hemoglobin 15.6 g/dL (14-18) Bedside Hematocrit 46 % (37-52) Bedside Sodium 141 mmol/L (135-145) Bedside Potassium 3.8 mmol/L (3.5-5.0) Bedside Chloride 101 mmol/L (98-110) Bedside Total CO2 31 mmol/L (23-32) Bedside Blood Urea Nitrogen 9 mg/dL (8-26) Bedside Creatinine 1.3 mg/dL (0.5-1.4) Bedside Ionized Calcium (Kortney) 1.22 mmol/L (1.13-1.32) Bedside Troponin I 0.03 ng/ml (<0.08) ECHOCARDIOGRAM ECHOCARDIOGRAM <Conclusion> There is borderline to mild concentric left ventricular hypertrophy. Left ventricle systolic function is normal. The Ejection Fraction is 50-55%. There is normal LV segmental wall motion. 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 DATE: 06/10/17912 <Conclusion> The left ventricular systolic function is normal and the ejection fraction is within normal range. The Ejection Fraction is 60-65%. There is mild to moderate concentric left ventricular hypertrophy. The left atrium is mildly dilated. Doppler and Color-flow revealed mild mitral regurgitation. Doppler and Color Flow revealed mild tricuspid regurgitation. The PA pressure was estimated at 37 mmHg. The aortic root is mildly enlarged. The ascending aorta is moderately dilated. The IVC is normal in size and collapses >50% with inspiration. There is no evidence of significant pericardial effusion. DATE: 09/04/14 1626 ASSESSMENT/PLAN ASSESSMENT/PLAN 1. Chest pain: troponin series normal. 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 2. AFIB: Deemed new onset and paroxysmal. no EKG nor tele strip to review. Per ED report noted with RVR. Presently SR with with occasional PACs. No prior hx. 3. Accelerated HTN: Improved 4. Acute diastolic CHF: mild and compensated after x1 dose of lasix. 5. Dilated ascending aorta: 4.8 cm 6. Hx of Asthma: pt is on symbicort as well as theophylline which could very well induce SVT. Defer to PCP. 7. 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 8. Morbid obesity and suspecting LAURA Off note: He was an inpt in 08/2014 for palpitations, no evidence of arrhythmias at that time and event monitor was suggested but failed to follow up. Recommendations 1. MPI today 2. Arrange for outpt event monitor. Will check AFIB burden and reevaluate NOAC needs as an outpt. 3. Will do CTA to further evaluate thoracic aorta once MPI result is noted 4. TSH, Lipid panel, BNP 5. Start on ECASA 81 mg. 6. Will DC cardizem drip and will start on PO metoprolol and titrate lisinopril dosing per BP response. Problems: AJITH GARRIDO MD 06/10/17 1400: CARDIAC CONSULT ALLERGIES ALLERGIES: Coded Allergies: No Known Drug Allergies (Unverified , 09/03/14) ASSESSMENT/PLAN ASSESSMENT/PLAN Pt. seen and examined. 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 MPI today, evaluate ascending aorta. Supportive care. Thanks for consultation. Problems: VICKI BECKFORD APRN Jun 10, 2017 10:12 AJITH GARRIDO MD Jun 10, 2017 14:00
--- NOTE | 2017-06-10 10:26 | EKG ---
[facility] [address] [place] [address] Test Date: 2017-06-09 Test Time: 16:57:16 Pat Name: TYRELL CHENG Department: Room: 201 1 Gender: M Financial Supervisor: : 1935 Requested By: ROLAND YOUNG Order Number: [id number] Reading MD: Laura Beavers Measurements Intervals Mcgrady Rate: 69 P: -43 OK: 232 QRS: -36 QRSD: 94 T: 65 QT: 392 QTc: 422 Interpretive Statements SINUS RHYTHM ATRIAL PREMATURE COMPLEX(ES) PROLONGED OK INTERVAL ABNORMAL LEFT AXIS DEVIATION CONSIDER LEFT VENTRICULAR HYPERTROPHY T ABNORMALITY IN HIGH LATERAL LEADS ABNORMAL ECG Electronically Signed On 06-12-2017 14:49:45 CDT by Laura Beavers
[2017-06-10 10:27] LABS: CHOLESTEROL/HDL RATIO 4.7
[2017-06-10] MEDS ORDERED: REGADENOSON 0.4 MG/5 ML DISP.SYRIN. IV ONE (10:30)
[2017-06-10] MEDS: ENOXAPARIN 40 MG/0.4 ML SYRINGE. SQ SCH ×2 (13:08→20:41)
[2017-06-10] MEDS: DUTASTERIDE 0.5 MG CAPSULE PO SCH (13:08)
[2017-06-10] MEDS: LISINOPRIL 10 MG TABLET PO SCH (13:08)
[2017-06-10] MEDS: ASPIRIN ENTERIC COATED 81 MG TABLET.DR. PO SCH (13:08)
--- NOTE | 2017-06-10 13:30 | PDOC ---
PROGRESS NOTES Chief Complaint Chief Complaint Acute chest pain ASSESSMENT AND PLAN: 1. CP: ruled out for ACS by enzymes. 2ary prevention meds 2. Afib: new, apparently paroxysmal - currently in SR. Arrange for outpt event monitor. TSH WNL 3. Accelerated HTN: improved; lisinopril, BB 4. Acute diastolic CHF: remains o2 dependent. cont IV lasix. await CTA (see below) 5. CAD: LAFB/first degree AV block and above issues. MPI today 6. Dilated ascending aorta: 4.8 cm; rpt CTA 7. Asthma: pt is on symbicort as well as theophylline which could very well induce SVT. 8. ?LAURA: pulm F/U for W/U 9. HLD: start statin 10. Morbid obesity: nutrition consult History of Present Illness History of Present Illness denies SOB, byt becomes hypoxic w/suppl O2. no CP, abd pain Vitals Vitals Vital Signs Date Time Temp Pulse Resp B/P (MAP) Pulse Ox O2 Delivery O2 Flow Rate FiO2 06/10/17 13:08 72 139/68 06/10/17 11:28 89 Nasal Cannula 3.0 06/09/17 23:48 98.0 20 98.0 Physical Exam General: Alert, Oriented X3, Cooperative, No acute distress Heart: Regular rate (SR), Other (2/6 systolic murmur to LLS border) Lungs: Clear Abdomen: Normal bowel sounds, Soft, No tenderness Extremities: No edema Skin: No rashes Labs LABS Laboratory Tests Test 06/09/17 16:40 06/09/17 16:48 06/09/17 23:50 06/10/17 06:35 White Blood Count 7.2 x10^3/uL (4.0-11.0) 7.3 x10^3/uL (4.0-11.0) Red Blood Count 4.91 x10^6/uL (4.30-5.70) 4.68 x10^6/uL (4.30-5.70) Hemoglobin 14.2 g/dL (13.0-17.5) 13.6 g/dL (13.0-17.5) Hematocrit 44.3 % (39.0-53.0) 42.4 % (39.0-53.0) Mean Corpuscular Volume 90 fL (79-100) 91 fL (79-100) Mean Corpuscular Hemoglobin 29 pg (25-35) 29 pg (25-35) Mean Corpuscular Hemoglobin Concent 32 g/dL (31-37) 32 g/dL (31-37) Red Cell Distribution Width 13.9 % (11.5-14.5) 13.9 % (11.5-14.5) Platelet Count 205 x10^3/uL (140-400) 192 x10^3/uL (140-400) Neutrophils (%) (Auto) 67 % (31-73) 80 % (31-73) Lymphocytes (%) (Auto) 18 % (24-48) 10 % (24-48) Monocytes (%) (Auto) 11 % (0-9) 8 % (0-9) Eosinophils (%) (Auto) 3 % (0-3) 1 % (0-3) Basophils (%) (Auto) 1 % (0-3) 1 % (0-3) Neutrophils # (Auto) 4.9 x10^3uL (1.8-7.7) 5.8 x10^3uL (1.8-7.7) Lymphocytes # (Auto) 1.3 x10^3/uL (1.0-4.8) 0.7 x10^3/uL (1.0-4.8) Monocytes # (Auto) 0.8 x10^3/uL (0.0-1.1) 0.6 x10^3/uL (0.0-1.1) Eosinophils # (Auto) 0.2 x10^3/uL (0.0-0.7) 0.1 x10^3/uL (0.0-0.7) Basophils # (Auto) 0.0 x10^3/uL (0.0-0.2) 0.0 x10^3/uL (0.0-0.2) Prothrombin Time 12.8 SEC (11.7-14.0) Prothromb Time International Ratio 1.0 (0.8-1.1) Sodium Level 141 mmol/L (136-145) 141 mmol/L (136-145) Potassium Level 3.7 mmol/L (3.5-5.1) 4.6 mmol/L (3.5-5.1) Chloride Level 102 mmol/L (98-107) 102 mmol/L (98-107) Carbon Dioxide Level 33 mmol/L (21-32) 36 mmol/L (21-32) Anion Gap 6 (6-14) 14 mmol/L (6-14) 3 (6-14) Blood Urea Nitrogen 11 mg/dL (8-26) 9 mg/dL (8-26) Creatinine 1.3 mg/dL (0.7-1.3) 1.3 mg/dL (0.7-1.3) Estimated GFR (Cockcroft-Gault) 63.9 63.9 BUN/Creatinine Ratio 8 (6-20) 7 (6-20) Glucose Level 102 mg/dL (70-99) 100 mg/dL (70-99) 105 mg/dL (70-99) Calcium Level 9.3 mg/dL (8.5-10.1) 8.9 mg/dL (8.5-10.1) Magnesium Level 2.0 mg/dL (1.8-2.4) Total Bilirubin 0.7 mg/dL (0.2-1.0) 0.8 mg/dL (0.2-1.0) Aspartate Amino Transf (AST/SGOT) 26 U/L (15-37) 23 U/L (15-37) Alanine Aminotransferase (ALT/SGPT) 18 U/L (16-63) 18 U/L (16-63) Alkaline Phosphatase 75 U/L (46-116) 67 U/L (46-116) Creatine Kinase 421 U/L (39-308) Creatine Kinase MB (Mass) 2.1 ng/mL (0.0-3.6) Creatine Kinase MB Relative Index 0.5 % (0-4) Troponin I Quantitative 0.036 ng/mL (0.000-0.055) 0.019 ng/mL (0.000-0.055) < 0.017 ng/mL (0.000-0.055) OC-Uki-Q-Type Natriuretic Peptide 271 pg/mL (0-449) Total Protein 7.7 g/dL (6.4-8.2) 6.8 g/dL (6.4-8.2) Albumin 3.8 g/dL (3.4-5.0) 3.5 g/dL (3.4-5.0) Albumin/Globulin Ratio 1.0 (1.0-1.7) 1.1 (1.0-1.7) Bedside Hemoglobin 15.6 g/dL (14-18) Bedside Hematocrit 46 % (37-52) Bedside Sodium 141 mmol/L (135-145) Bedside Potassium 3.8 mmol/L (3.5-5.0) Bedside Chloride 101 mmol/L (98-110) Bedside Total CO2 31 mmol/L (23-32) Bedside Blood Urea Nitrogen 9 mg/dL (8-26) Bedside Creatinine 1.3 mg/dL (0.5-1.4) Bedside Ionized Calcium (Kortney) 1.22 mmol/L (1.13-1.32) Bedside Troponin I 0.03 ng/ml (<0.08) Triglycerides Level 90 mg/dL (0-150) Cholesterol Level 205 mg/dL (0-200) LDL Cholesterol, Calculated 143 mg/dL (0-100) VLDL Cholesterol, Calculated 18 mg/dL (0-40) Non-HDL Cholesterol Calculated 161 mg/dL (0-129) HDL Cholesterol 44 mg/dL (40-60) Cholesterol/HDL Ratio 4.7 Thyroid Stimulating Hormone (TSH) 1.124 uIU/mL (0.358-3.74) PAULA RODAS MD Jun 10, 2017 13:30
--- NOTE | 2017-06-10 15:53 | RAD ---
APPROVED REPORT Test Type: Exercise Stress Nurse/Tech: Tiff Serrano R.N. Test Indications: dyspnea, c/p Cardiac History: No known cardiac Medications: See Electronic Medical Record Medical History: See Electronic Medical Record Resting ECG: SrR w/ 1st degree AVB, reyes is 0.22- inverted T waves in leads AVR, AVL . inverted R waves in leads II,III, AVF, V3-V6. slight ST elevation in lead V3 Resting Heart Rate: 60 bpm Resting Blood Pressure: 132/64mmHg Pretest Chest Pain: No chest pain Nurse/Tech Notes S1S2, lungs CTA but deminished. SPO2 was 91% on 3 L n/c Consent: The procedure was explained to the patient in lay terms. Informed consent was witnessed. Adrien eout was entered into [employer]. History and Stress Test performed by RT Robbie (Ashish) (N) Pharm. Details Pharmacologic stress testing was performed using 0.4mg per 5ml of regadenoson given intravenously ove r 7-10 seconds. Stress Symptoms pt stated he felt SOB but it was not worse than prior to lexiscan even though he appeared more so. R waves that had been inverted in leads II, V3-V6 became upright post lexiscan POST EXERCISE Reason for Termination: Infusion complete Max HR: 98 bpm Max Blood Pressure: 129/57mmHg Blood Pressure response to exercise: Normal blood pressure response during stress. Heart Rate response to exercise: wnl Chest Pain: No. Arrhythmia: Yes. started having noted pac's ST Change: No. INTERPRETATION Stress EKG Conclusion: No evidence of stress induced EKG changes. Imaging Protocol IMAGE PROTOCOL: Stress Tc-99m/rest Tc-99m 2 days Rest: Stress: Viability: Radiopharm.Tc99m Sestamibi [id number] Img Date 06/10/2017 Inj-Img [id number]. Stress Admin Site: IV - Left AntecubitalAdministrator: RT Robbie (R)(N) STRESS DATA End Diast. Vol.174.0mlAv. Heart Rate66.0bpm End Syst. Vol.71.0mlCO Index BSA0.0L/min Myocardial Vwfp308.0gEject. Iruwkdmo51.0% Stress Rates Pk. Fill Rate2.42EDV/secLVtime Pk. Fill 179.55msec Pk. Empty Rate2.97ESV/secLVtime Pk. Bpegp589.09msec 08/18 Pk. Fill1.12EDV/sec Stress Scores Regional WT0.00Summed WT7.00 Regional WM0.00Summed WM0.00 LV Perfusion Normal perfusion at stress. Wall Motion Normal wall motion. LV Perf. Quant 17 Seg. SSS0.00 Stress Defect Extent (% LAD)0.00Rest Defect Extent (% LAD)Rev. Defect Extent (% LAD)0.00 Stress Defect Extent (% LCX) 0.00Rest Defect Extent (% LCX)Rev. Defect Extent (% LCX)0.00 Stress Defect Extent (% RCA)0.00Rest Defect Extent (% RCA)Rev. Defect Extent (% RCA)0.00 Stress Defect Extent (% COLEEN)0.00Rest Defect Extent (% COLEEN)Rev. Defect Extent (% COLEEN)0.00 Other Information Quality:Average Risk Assessment: Low Risk Conclusion 1. No evidence of EKG changes with stress testing. 2. Normal perfusion at stress. 3. Low risk study. 4. EF > 60%.
[2017-06-10] MEDS ORDERED: FUROSEMIDE 40 MG/4 ML VIAL. IVP ONE (16:15)
[2017-06-10] MEDS ORDERED: CONTRAST GIVEN MC PRN (17:30)
[2017-06-10] MEDS ORDERED: IOHEXOL 300 MG/ML 75 ML VIAL IV ONE (17:30)
[2017-06-10] MEDS: METOPROLOL TART IMMED RELEASE 25 MG TABLET. PO SCH (20:41)
[2017-06-10] MEDS ORDERED: TERAZOSIN 5 MG CAPSULE. PO SCH (21:00)
[2017-06-11 03:48] VITALS: BP 139/62
[2017-06-11 05:13] LABS: BASO % 1 % (0-3); EOS % 1 % (0-3); HEMATOCRIT 41.3 % (39.0-53.0); HEMOGLOBIN 13.2 g/dL (13.0-17.5); LYMPH # 0.8 x10^3/uL (1.0-4.8); LYMPH % 9 % (24-48); MEAN CORPUSCULAR HEMOGLOBIN 29 pg (25-35); MEAN CORPUSCULAR HGB CONC 32 g/dL (31-37); MEAN CORPUSCULAR VOLUME 92 fL (79-100); MONO % 12 % (0-9); NEUT % 78 % (31-73); PLATELET COUNT 196 x10^3/uL (140-400); RED BLOOD COUNT 4.51 x10^6/uL (4.30-5.70); RED CELL DISTRIBUTION WIDTH 13.6 % (11.5-14.5); WHITE BLOOD COUNT 9.5 x10^3/uL (4.0-11.0)
[2017-06-11 05:55] LABS: ALBUMIN 3.4 g/dL (3.4-5.0); ALBUMIN/GLOBULIN RATIO 0.9 (1.0-1.7); CREATININE 1.3 mg/dL (0.7-1.3); GFR 63.9; POTASSIUM 4.2 mmol/L (3.5-5.1); TOTAL BILIRUBIN 1.1 mg/dL (0.2-1.0); TOTAL PROTEIN 7.2 g/dL (6.4-8.2)
[2017-06-11] MEDS: BUDESONIDE 0.5 MG/2 ML NEBU. NEB SCH (06:59)
[2017-06-11] MEDS: IPRATRPIUM/ALBUTEROL 0.5/2.5MG 3 ML NEBU. NEB SCH ×3 (06:59→15:42)
[2017-06-11 07:00] VITALS: BP 156/67
--- NOTE | 2017-06-11 08:03 | RAD ---
CT of the chest with contrast, 06/10/2017: History: Dilated thoracic aorta Multidetector CT imaging was performed following an IV bolus injection of iodinated contrast material. Multiplanar reconstructions were then produced including 3-D volume rendered reconstructions of the aorta. There is moderate calcific plaquing of the thoracic aorta. The ascending aorta measures 4.9 cm in width. The aortic arch measures 4.0 cm in width. The descending thoracic aorta is mildly tortuous and measures 3.7 cm in width. There is no evidence of aortic dissection. The origins of the cervicocephalic arteries from the aortic arch are widely patent. The heart is generally enlarged. A few scattered coronary artery calcifications are noted. No mediastinal or hilar adenopathy is seen. The depth of inspiration is poor. There are moderate bilateral lower lung pulmonary opacities compatible with atelectasis. A component of pneumonia cannot be excluded. No significant volume of pleural fluid is evident. Moderate multilevel degenerative changes are present in the spine. IMPRESSION: 1. Aortic atherosclerosis with dilatation of the ascending aorta. 2. Cardiomegaly with mild coronary artery calcifications. 3. Suboptimal inspiration with moderate bibasilar atelectasis. PQRS Compliance Statement: One or more of the following individualized dose reduction techniques were utilized for this examination: 1. Automated exposure control 2. Adjustment of the mA and/or kV according to patient size 3. Use of iterative reconstruction technique
[2017-06-11] MEDS: ASPIRIN ENTERIC COATED 81 MG TABLET.DR. PO SCH (08:18)
[2017-06-11] MEDS: METOPROLOL TART IMMED RELEASE 25 MG TABLET. PO SCH (08:19)
[2017-06-11] MEDS: DUTASTERIDE 0.5 MG CAPSULE PO SCH (08:19)
[2017-06-11] MEDS: LISINOPRIL 10 MG TABLET PO SCH (08:19)
[2017-06-11] MEDS: THEOPHYLLINE 12HR ER 300 MG TAB.ER.12H. PO SCH (08:20)
[2017-06-11] MEDS: ENOXAPARIN 40 MG/0.4 ML SYRINGE. SQ SCH (08:20)
[2017-06-11 11:00] VITALS: BP 137/70
--- NOTE | 2017-06-11 12:53 | PDOC ---
PROGRESS NOTES Chief Complaint Chief Complaint Acute chest pain ASSESSMENT AND PLAN: 1. CP: ruled out for ACS by enzymes. 2ary prevention meds 2. Afib: new, apparently paroxysmal - currently in SR. Arrange for outpt event monitor. TSH WNL 3. Accelerated HTN: improved; lisinopril, BB 4. Acute diastolic CHF: remains o2 dependent. cont IV lasix. CTA yesterday poor inspiration, but no significant infiltrates (basilar atelectasis); no evidence of PE by my review 5. CAD: LAFB/first degree AV block and above issues. MPI today 6. Dilated ascending aorta: CTA up to 4.9 cm; root on echo about 3.7 cm 7. Asthma: pt is on symbicort as well as theophylline which could very well induce SVT - ?hypoxia due to exacerbation, but pt asymptomatic; denies having been admitted for exacerbations in past 8. ?LAURA: pulm F/U for W/U 9. HLD: start statin 10. Morbid obesity: nutrition consult History of Present Illness History of Present Illness denies SOB, byt becomes hypoxic w/suppl O2. no CP, abd pain Vitals Vitals Vital Signs Date Time Temp Pulse Resp B/P (MAP) Pulse Ox O2 Delivery O2 Flow Rate FiO2 06/11/17 11:32 Nasal Cannula 3.0 06/11/17 11:00 97.6 55 20 137/70 (92) 93 97.6 Physical Exam General: Alert, Oriented X3, Cooperative, No acute distress Heart: Regular rate, Other (2/6 systolic murmur to LLS border) Lungs: Clear Abdomen: Normal bowel sounds, Soft, No tenderness Extremities: No edema Skin: No rashes Labs LABS Laboratory Tests Test 06/11/17 03:45 06/11/17 03:50 Sodium Level 138 mmol/L (136-145) Potassium Level 4.2 mmol/L (3.5-5.1) Chloride Level 99 mmol/L (98-107) Carbon Dioxide Level 37 mmol/L (21-32) Anion Gap 2 (6-14) Blood Urea Nitrogen 10 mg/dL (8-26) Creatinine 1.3 mg/dL (0.7-1.3) Estimated GFR (Cockcroft-Gault) 63.9 BUN/Creatinine Ratio 8 (6-20) Glucose Level 117 mg/dL (70-99) Calcium Level 9.0 mg/dL (8.5-10.1) Magnesium Level 2.0 mg/dL (1.8-2.4) Total Bilirubin 1.1 mg/dL (0.2-1.0) Aspartate Amino Transf (AST/SGOT) 23 U/L (15-37) Alanine Aminotransferase (ALT/SGPT) 17 U/L (16-63) Alkaline Phosphatase 67 U/L (46-116) Total Protein 7.2 g/dL (6.4-8.2) Albumin 3.4 g/dL (3.4-5.0) Albumin/Globulin Ratio 0.9 (1.0-1.7) White Blood Count 9.5 x10^3/uL (4.0-11.0) Red Blood Count 4.51 x10^6/uL (4.30-5.70) Hemoglobin 13.2 g/dL (13.0-17.5) Hematocrit 41.3 % (39.0-53.0) Mean Corpuscular Volume 92 fL (79-100) Mean Corpuscular Hemoglobin 29 pg (25-35) Mean Corpuscular Hemoglobin Concent 32 g/dL (31-37) Red Cell Distribution Width 13.6 % (11.5-14.5) Platelet Count 196 x10^3/uL (140-400) Neutrophils (%) (Auto) 78 % (31-73) Lymphocytes (%) (Auto) 9 % (24-48) Monocytes (%) (Auto) 12 % (0-9) Eosinophils (%) (Auto) 1 % (0-3) Basophils (%) (Auto) 1 % (0-3) Neutrophils # (Auto) 7.4 x10^3uL (1.8-7.7) Lymphocytes # (Auto) 0.8 x10^3/uL (1.0-4.8) Monocytes # (Auto) 1.2 x10^3/uL (0.0-1.1) Eosinophils # (Auto) 0.1 x10^3/uL (0.0-0.7) Basophils # (Auto) 0.0 x10^3/uL (0.0-0.2) PAULA RODAS MD Jun 11, 2017 12:53
[2017-06-11 14:46] VITALS: BP 137/70
--- NOTE | 2017-06-11 14:55 | PDOC ---
VICKI BECKFORD INSPECTOR ALUMINUM BOAT 06/11/17 1455: CARDIO Progress Notes Date and Time Date of Service 06/11/2017 Time of Evaluation 1430 Subjective Subjective: No Chest Pain, No shortness of breath, No Palpitations Vitals Vitals Vital Signs Date Time Temp Pulse Resp B/P (MAP) Pulse Ox O2 Delivery O2 Flow Rate FiO2 06/11/17 11:32 Nasal Cannula 3.0 06/11/17 11:00 97.6 55 20 137/70 (92) 93 97.6 Weight Weight [ ] Input and Output Intake and Output Intake and Output 06/12/17 07:00 Output Total 500 ml Balance -500 ml Output Urine Total 500 ml Laboratory Labs Laboratory Tests Test 06/11/17 03:45 06/11/17 03:50 Sodium Level 138 mmol/L (136-145) Potassium Level 4.2 mmol/L (3.5-5.1) Chloride Level 99 mmol/L (98-107) Carbon Dioxide Level 37 mmol/L (21-32) Anion Gap 2 (6-14) Blood Urea Nitrogen 10 mg/dL (8-26) Creatinine 1.3 mg/dL (0.7-1.3) Estimated GFR (Cockcroft-Gault) 63.9 BUN/Creatinine Ratio 8 (6-20) Glucose Level 117 mg/dL (70-99) Calcium Level 9.0 mg/dL (8.5-10.1) Magnesium Level 2.0 mg/dL (1.8-2.4) Total Bilirubin 1.1 mg/dL (0.2-1.0) Aspartate Amino Transf (AST/SGOT) 23 U/L (15-37) Alanine Aminotransferase (ALT/SGPT) 17 U/L (16-63) Alkaline Phosphatase 67 U/L (46-116) Total Protein 7.2 g/dL (6.4-8.2) Albumin 3.4 g/dL (3.4-5.0) Albumin/Globulin Ratio 0.9 (1.0-1.7) White Blood Count 9.5 x10^3/uL (4.0-11.0) Red Blood Count 4.51 x10^6/uL (4.30-5.70) Hemoglobin 13.2 g/dL (13.0-17.5) Hematocrit 41.3 % (39.0-53.0) Mean Corpuscular Volume 92 fL (79-100) Mean Corpuscular Hemoglobin 29 pg (25-35) Mean Corpuscular Hemoglobin Concent 32 g/dL (31-37) Red Cell Distribution Width 13.6 % (11.5-14.5) Platelet Count 196 x10^3/uL (140-400) Neutrophils (%) (Auto) 78 % (31-73) Lymphocytes (%) (Auto) 9 % (24-48) Monocytes (%) (Auto) 12 % (0-9) Eosinophils (%) (Auto) 1 % (0-3) Basophils (%) (Auto) 1 % (0-3) Neutrophils # (Auto) 7.4 x10^3uL (1.8-7.7) Lymphocytes # (Auto) 0.8 x10^3/uL (1.0-4.8) Monocytes # (Auto) 1.2 x10^3/uL (0.0-1.1) Eosinophils # (Auto) 0.1 x10^3/uL (0.0-0.7) Basophils # (Auto) 0.0 x10^3/uL (0.0-0.2) Physical Exam HEENT: Neck Supple W Full Motion Chest: Symmetric LUNGS: Other (diminished bases) Heart: S1S2, RRR (SR) Abdomen: Soft N/T Extremities: No Calf Tenderness Neurology: alert, oriented, follow commands Assessment Assessment 1. Chest pain: troponin series normal. 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 Could be from palpitations. MPI normal. 2. Tachyarrhythmia: Possible PSVT. No signs of AFIB. Burst of SVT but likely MAT as well. SB in the 50s. Will need to rule out any tachybrady issues. 3. Accelerated HTN: Controlled 4. Acute diastolic CHF: compensated. 5. Dilated ascending/descending aorta: ascending 4.9 cm in width. The aortic arch measures 4.0 cm in width. Descending thoracic aorta measures 3.7 cm in width. 6. Hx of Asthma: pt is on symbicort as well as theophylline which could very well induce SVT. Defer to PCP. 7. 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 8. Morbid obesity and suspecting LAURA: pulmonary consulted. Recommendations 1. Outpt event monitor. 2. Follow up aorta imaging in 6 months. 3. Start on statin. Continue on ECASA 81 mg. 4. Continue on lisinopril and metoprolol. 5. F/U in office in 4-5 weeks. AJITH GARRIDO MD 06/11/17 1800: CARDIO Progress Notes Plan Plan Pt. seen and examined. Agree with above [employer] note. Supportive care. f/u in the office after event monitor. ascending aorta dilation may be normal for him given his size. VICKI BECKFORD APRN Jun 11, 2017 14:55 AJITH GARRIDO MD Jun 11, 2017 18:00
--- NOTE | 2017-06-11 16:41 | PDOC ---
PULMONARY PROGRESS NOTES Vitals Vital Signs Date Time Temp Pulse Resp B/P (MAP) Pulse Ox O2 Delivery O2 Flow Rate FiO2 06/11/17 15:43 Nasal Cannula 3.0 06/11/17 14:46 98.1 58 22 137/70 (92) 94 98.1 Lungs: Clear Labs Laboratory Tests Test 06/09/17 16:40 06/09/17 16:48 06/09/17 23:50 06/10/17 06:35 White Blood Count 7.2 x10^3/uL (4.0-11.0) 7.3 x10^3/uL (4.0-11.0) Red Blood Count 4.91 x10^6/uL (4.30-5.70) 4.68 x10^6/uL (4.30-5.70) Hemoglobin 14.2 g/dL (13.0-17.5) 13.6 g/dL (13.0-17.5) Hematocrit 44.3 % (39.0-53.0) 42.4 % (39.0-53.0) Mean Corpuscular Volume 90 fL (79-100) 91 fL (79-100) Mean Corpuscular Hemoglobin 29 pg (25-35) 29 pg (25-35) Mean Corpuscular Hemoglobin Concent 32 g/dL (31-37) 32 g/dL (31-37) Red Cell Distribution Width 13.9 % (11.5-14.5) 13.9 % (11.5-14.5) Platelet Count 205 x10^3/uL (140-400) 192 x10^3/uL (140-400) Neutrophils (%) (Auto) 67 % (31-73) 80 % (31-73) Lymphocytes (%) (Auto) 18 % (24-48) 10 % (24-48) Monocytes (%) (Auto) 11 % (0-9) 8 % (0-9) Eosinophils (%) (Auto) 3 % (0-3) 1 % (0-3) Basophils (%) (Auto) 1 % (0-3) 1 % (0-3) Neutrophils # (Auto) 4.9 x10^3uL (1.8-7.7) 5.8 x10^3uL (1.8-7.7) Lymphocytes # (Auto) 1.3 x10^3/uL (1.0-4.8) 0.7 x10^3/uL (1.0-4.8) Monocytes # (Auto) 0.8 x10^3/uL (0.0-1.1) 0.6 x10^3/uL (0.0-1.1) Eosinophils # (Auto) 0.2 x10^3/uL (0.0-0.7) 0.1 x10^3/uL (0.0-0.7) Basophils # (Auto) 0.0 x10^3/uL (0.0-0.2) 0.0 x10^3/uL (0.0-0.2) Prothrombin Time 12.8 SEC (11.7-14.0) Prothromb Time International Ratio 1.0 (0.8-1.1) Sodium Level 141 mmol/L (136-145) 141 mmol/L (136-145) Potassium Level 3.7 mmol/L (3.5-5.1) 4.6 mmol/L (3.5-5.1) Chloride Level 102 mmol/L (98-107) 102 mmol/L (98-107) Carbon Dioxide Level 33 mmol/L (21-32) 36 mmol/L (21-32) Anion Gap 6 (6-14) 14 mmol/L (6-14) 3 (6-14) Blood Urea Nitrogen 11 mg/dL (8-26) 9 mg/dL (8-26) Creatinine 1.3 mg/dL (0.7-1.3) 1.3 mg/dL (0.7-1.3) Estimated GFR (Cockcroft-Gault) 63.9 63.9 BUN/Creatinine Ratio 8 (6-20) 7 (6-20) Glucose Level 102 mg/dL (70-99) 100 mg/dL (70-99) 105 mg/dL (70-99) Calcium Level 9.3 mg/dL (8.5-10.1) 8.9 mg/dL (8.5-10.1) Magnesium Level 2.0 mg/dL (1.8-2.4) Total Bilirubin 0.7 mg/dL (0.2-1.0) 0.8 mg/dL (0.2-1.0) Aspartate Amino Transf (AST/SGOT) 26 U/L (15-37) 23 U/L (15-37) Alanine Aminotransferase (ALT/SGPT) 18 U/L (16-63) 18 U/L (16-63) Alkaline Phosphatase 75 U/L (46-116) 67 U/L (46-116) Creatine Kinase 421 U/L (39-308) Creatine Kinase MB (Mass) 2.1 ng/mL (0.0-3.6) Creatine Kinase MB Relative Index 0.5 % (0-4) Troponin I Quantitative 0.036 ng/mL (0.000-0.055) 0.019 ng/mL (0.000-0.055) < 0.017 ng/mL (0.000-0.055) OC-Iky-S-Type Natriuretic Peptide 271 pg/mL (0-449) Total Protein 7.7 g/dL (6.4-8.2) 6.8 g/dL (6.4-8.2) Albumin 3.8 g/dL (3.4-5.0) 3.5 g/dL (3.4-5.0) Albumin/Globulin Ratio 1.0 (1.0-1.7) 1.1 (1.0-1.7) Bedside Hemoglobin 15.6 g/dL (14-18) Bedside Hematocrit 46 % (37-52) Bedside Sodium 141 mmol/L (135-145) Bedside Potassium 3.8 mmol/L (3.5-5.0) Bedside Chloride 101 mmol/L (98-110) Bedside Total CO2 31 mmol/L (23-32) Bedside Blood Urea Nitrogen 9 mg/dL (8-26) Bedside Creatinine 1.3 mg/dL (0.5-1.4) Bedside Ionized Calcium (Kortney) 1.22 mmol/L (1.13-1.32) Bedside Troponin I 0.03 ng/ml (<0.08) Triglycerides Level 90 mg/dL (0-150) Cholesterol Level 205 mg/dL (0-200) LDL Cholesterol, Calculated 143 mg/dL (0-100) VLDL Cholesterol, Calculated 18 mg/dL (0-40) Non-HDL Cholesterol Calculated 161 mg/dL (0-129) HDL Cholesterol 44 mg/dL (40-60) Cholesterol/HDL Ratio 4.7 Thyroid Stimulating Hormone (TSH) 1.124 uIU/mL (0.358-3.74) Test 06/11/17 03:45 06/11/17 03:50 Sodium Level 138 mmol/L (136-145) Potassium Level 4.2 mmol/L (3.5-5.1) Chloride Level 99 mmol/L (98-107) Carbon Dioxide Level 37 mmol/L (21-32) Anion Gap 2 (6-14) Blood Urea Nitrogen 10 mg/dL (8-26) Creatinine 1.3 mg/dL (0.7-1.3) Estimated GFR (Cockcroft-Gault) 63.9 BUN/Creatinine Ratio 8 (6-20) Glucose Level 117 mg/dL (70-99) Calcium Level 9.0 mg/dL (8.5-10.1) Magnesium Level 2.0 mg/dL (1.8-2.4) Total Bilirubin 1.1 mg/dL (0.2-1.0) Aspartate Amino Transf (AST/SGOT) 23 U/L (15-37) Alanine Aminotransferase (ALT/SGPT) 17 U/L (16-63) Alkaline Phosphatase 67 U/L (46-116) Total Protein 7.2 g/dL (6.4-8.2) Albumin 3.4 g/dL (3.4-5.0) Albumin/Globulin Ratio 0.9 (1.0-1.7) White Blood Count 9.5 x10^3/uL (4.0-11.0) Red Blood Count 4.51 x10^6/uL (4.30-5.70) Hemoglobin 13.2 g/dL (13.0-17.5) Hematocrit 41.3 % (39.0-53.0) Mean Corpuscular Volume 92 fL (79-100) Mean Corpuscular Hemoglobin 29 pg (25-35) Mean Corpuscular Hemoglobin Concent 32 g/dL (31-37) Red Cell Distribution Width 13.6 % (11.5-14.5) Platelet Count 196 x10^3/uL (140-400) Neutrophils (%) (Auto) 78 % (31-73) Lymphocytes (%) (Auto) 9 % (24-48) Monocytes (%) (Auto) 12 % (0-9) Eosinophils (%) (Auto) 1 % (0-3) Basophils (%) (Auto) 1 % (0-3) Neutrophils # (Auto) 7.4 x10^3uL (1.8-7.7) Lymphocytes # (Auto) 0.8 x10^3/uL (1.0-4.8) Monocytes # (Auto) 1.2 x10^3/uL (0.0-1.1) Eosinophils # (Auto) 0.1 x10^3/uL (0.0-0.7) Basophils # (Auto) 0.0 x10^3/uL (0.0-0.2) Laboratory Tests Test 06/11/17 03:45 06/11/17 03:50 Sodium Level 138 mmol/L (136-145) Potassium Level 4.2 mmol/L (3.5-5.1) Chloride Level 99 mmol/L (98-107) Carbon Dioxide Level 37 mmol/L (21-32) Anion Gap 2 (6-14) Blood Urea Nitrogen 10 mg/dL (8-26) Creatinine 1.3 mg/dL (0.7-1.3) Estimated GFR (Cockcroft-Gault) 63.9 BUN/Creatinine Ratio 8 (6-20) Glucose Level 117 mg/dL (70-99) Calcium Level 9.0 mg/dL (8.5-10.1) Magnesium Level 2.0 mg/dL (1.8-2.4) Total Bilirubin 1.1 mg/dL (0.2-1.0) Aspartate Amino Transf (AST/SGOT) 23 U/L (15-37) Alanine Aminotransferase (ALT/SGPT) 17 U/L (16-63) Alkaline Phosphatase 67 U/L (46-116) Total Protein 7.2 g/dL (6.4-8.2) Albumin 3.4 g/dL (3.4-5.0) Albumin/Globulin Ratio 0.9 (1.0-1.7) White Blood Count 9.5 x10^3/uL (4.0-11.0) Red Blood Count 4.51 x10^6/uL (4.30-5.70) Hemoglobin 13.2 g/dL (13.0-17.5) Hematocrit 41.3 % (39.0-53.0) Mean Corpuscular Volume 92 fL (79-100) Mean Corpuscular Hemoglobin 29 pg (25-35) Mean Corpuscular Hemoglobin Concent 32 g/dL (31-37) Red Cell Distribution Width 13.6 % (11.5-14.5) Platelet Count 196 x10^3/uL (140-400) Neutrophils (%) (Auto) 78 % (31-73) Lymphocytes (%) (Auto) 9 % (24-48) Monocytes (%) (Auto) 12 % (0-9) Eosinophils (%) (Auto) 1 % (0-3) Basophils (%) (Auto) 1 % (0-3) Neutrophils # (Auto) 7.4 x10^3uL (1.8-7.7) Lymphocytes # (Auto) 0.8 x10^3/uL (1.0-4.8) Monocytes # (Auto) 1.2 x10^3/uL (0.0-1.1) Eosinophils # (Auto) 0.1 x10^3/uL (0.0-0.7) Basophils # (Auto) 0.0 x10^3/uL (0.0-0.2) Medications Active Scripts Medications Dose Route/Sig Max Daily Dose Days Date Category Aspirin Ec (Aspirin) 81 Mg Tablet.dr 1 Tab PO DAILY 09/04/14 Rx Avodart (Dutasteride) 0.5 Mg Capsule 1 Cap PO DAILY 09/03/14 Reported Terazosin Hcl 10 Mg Capsule 1 Cap PO DAILY 09/03/14 Reported Lisinopril 40 Mg Tablet 1 Tab PO DAILY 09/03/14 Reported Theophylline (Theophylline Anhydrous) 400 Mg Tablet.er 200 Mg PO TWICE DAILY 09/03/14 Reported Symbicort 160-4.5 Mcg Inhaler (Budesonide/Formoterol Fumarate) 10.2 Gm Hfa.aer.ad 2 Puff IH BID 09/03/14 Reported Impression . FULL NOTE DICTATED COPD/ASTHMA POSSIBLE PNEUMONIA PLAN D/C THEOPHYLLINE ADD PRN ALBUTEROL OK TO D/C OUTPT SLEEP STUDY MACARIO LEIVA MD Jun 11, 2017 16:41
[2017-06-11] MEDS ORDERED: ATOR40TA59 PO (16:45)
[2017-06-11] MEDS ORDERED: METO25TA4 PO (16:45)
[2017-06-11] MEDS ORDERED: LISI10TA2 PO (16:45)
--- NOTE | 2017-06-11 20:48 | DS ---
DATE OF DISCHARGE: 06/11/2017 CHIEF COMPLAINT: Acute chest pain. HOSPITAL COURSE: The patient is an 81-year-old morbidly obese gentleman who presented with acute chest pain. This fortunately resolved by itself and he was ruled out for acute coronary syndrome by enzymes. He had been found with AFib, which actually spontaneously reverted back to normal sinus rhythm. An outpatient event monitor was arranged for him and TSH was found normal. Accelerated hypertension at admission was improved with lisinopril and beta sarahy and remained stable. He, however, was found with acute diastolic CHF and remained significantly O2 dependent. A CTA, which had been obtained for a large ascending aortic aneurysm, did not show any PE and was essentially benign say for basilar atelectasis. As no clear etiology of his hypoxia was found, Pulmonary consult was obtained. The patient was advised to follow up on an outpatient basis for evaluation of sleep apnea. In further studies, the patient actually underwent a myocardial perfusion stress test as well, which was without any reversible ischemia. Because of the association of theophylline with AFib, the drug was omitted with the okay of Dr. Trujillo from Pulmonary. PHYSICAL EXAMINATION: VITAL SIGNS: Show blood pressure of 137/70, heart rate of 55, respiratory rate of 20 and he is afebrile. GENERAL: This is a morbidly obese -Portuguese gentleman, alert and oriented, no acute distress. LUNGS: Clear. HEART: Has regular rate and rhythm. ABDOMEN: Has positive bowel sounds. Soft and nontender. EXTREMITIES: Show no edema. DISCHARGE DIAGNOSES: Accelerated hypertension, acute diastolic congestive heart failure and hypoxia. DISCHARGE DISPOSITION: To home with supplemental O2 between 4 and 6 liters at rest and with activity. DISCHARGE CONDITION: Improved. DISCHARGE MEDICATIONS: Please refer to MAR. DISCHARGE INSTRUCTIONS: The patient will follow up with PCP as well as Dr. Trujillo for further workup. PAULA RODAS MD DR: JAMIE/nts JOB#: [id number] / [id number] TRINA Richardson MD
[2017-06-11] MEDS ORDERED: ATORVASTATIN CALCIUM 40 MG TABLET. PO SCH (21:00)
--- NOTE | 2017-06-12 02:29 | CONS ---
DATE OF CONSULTATION: 06/11/2017 ATTENDING PHYSICIAN: Ruby Tate MD REASON FOR CONSULTATION: The patient seen in pulmonary consultation at the request of Dr. Tate for asthma evaluation, wanting to know if theophylline is necessary. HISTORY OF PRESENT ILLNESS: The patient is an 81-year-old -[place] male that presented with increasing shortness of breath and chest pain over the last 5 days. He was found to have AFib in the Emergency Department. He is currently in sinus rhythm. He is on theophylline. I was asked to see him in consultation for further evaluation of his asthma. The patient smoked for approximately 10-15 years and quit in . He is currently on Symbicort and theophylline. He does not know what drives his asthma. He does have a diagnosis of asthma. He has never had any formal allergy testing. PAST MEDICAL HISTORY: 1. COPD with an asthma component, tobacco dependent, quit in . 2. Hypertension. 3. Obesity. 4. Benign prostatic hypertrophy. PAST SURGICAL HISTORY: No recent major surgeries. ALLERGIES: No known drug allergies. HOME MEDICATIONS: List was reviewed. Please see the MRAD. SOCIAL HISTORY: Socially he quit tobacco in 1979. Denies any excessive alcohol intake. REVIEW OF SYSTEMS: As indicated above, otherwise, a 10-point system was reviewed and negative. FAMILY HISTORY: Remarkable for heart disease and hypertension. PHYSICAL EXAMINATION: GENERAL: The patient appeared to be younger than his stated age, morbid obese individual with a body mass index of 40. HEENT: Eyes, the sclerae were nonicteric. NECK: Jugular venous distention could not be assessed secondary to body habitus. CHEST: Full expansion. LUNGS: Poor airway flow with no wheezes, rales or rhonchi. CARDIOVASCULAR: Regular rate and rhythm with distant heart sounds, S1, S2, no S3. ABDOMEN: Soft, obese. EXTREMITIES: No pitting edema. NEUROLOGIC: The patient was awake, alert, following commands. A detailed neuro exam was not performed. LABORATORY DATA: Labs were reviewed. White count was normal. Hemoglobin and hematocrit were normal. INR was 1.2. Lipid levels were deranged. BUN was elevated and creatinine was normal. A CT angiogram was performed. There was no evidence of aortic dissection. There was some atelectasis, possible infiltrates in the bases suboptimal inspiration. IMPRESSION: 1. Chronic obstructive pulmonary disease with an asthma component with mild exacerbation. 2. Progressive dyspnea secondary multifactorial. 3. Abnormal CT of the chest revealing atelectasis, possible pneumonia. 4. Morbid obesity. 5. Tachyarrhythmia. 6. Accelerated hypertension. 7. Acute diastolic heart failure. 8. Suspect obstructive sleep apnea. PLAN: 1. Discontinue theophylline. 2. Continue Symbicort and p.r.n. albuterol. 3. Outpatient polysomnogram. 4. Discharged home okayed by me. Followup in the outpatient department, I gave the my business card. 5. The patient instructed on the importance of weight reduction program. I do appreciate the privilege in sharing in the patient's care. MACARIO LEIVA MD DR: DIA/tamika JOB#: [id number] / [id number]
== END 2017-06-11 18:45 | disposition home or self-care (01) | DRG 291 ==
LOC: ER 16:31 → 2 NORTH 18:55
PROVIDERS: ADMIT Internal Medicine; ATTEND Internal Medicine
DX: I13.0 Hypertensive heart and chronic kidney disease with heart failure and stage 1 through stage 4 chronic kidney disease, or unspecified chronic kidney disease (principal); I50.31 Acute diastolic (congestive) heart failure; J96.00 Acute respiratory failure, unspecified whether with hypoxia or hypercapnia; J44.1 Chronic obstructive pulmonary disease with (acute) exacerbation; J98.11 Atelectasis; I48.0 Paroxysmal atrial fibrillation; I71.2 Thoracic aortic aneurysm, without rupture; E66.01 Morbid (severe) obesity due to excess calories; Z99.81 Dependence on supplemental oxygen; E78.5 Hyperlipidemia, unspecified; I25.10 Atherosclerotic heart disease of native coronary artery without angina pectoris; I44.0 Atrioventricular block, first degree; N40.0 Benign prostatic hyperplasia without lower urinary tract symptoms; R09.02 Hypoxemia; G47.30 Sleep apnea, unspecified; M19.90 Unspecified osteoarthritis, unspecified site; Z82.3 Family history of stroke; Z82.49 Family history of ischemic heart disease and other diseases of the circulatory system; Z87.891 Personal history of nicotine dependence; Z90.49 Acquired absence of other specified parts of digestive tract; Z68.39 Body mass index [BMI] 39.0-39.9, adult; N18.2 Chronic kidney disease, stage 2 (mild)
CPT/HCPCS: 36415; 71010; 71275; 78452; 80047; 80053; 80061; 82553; 83735; 83880; 84443; 84484; 85025; 85610; 93005; 93017; 93306; 94250; 94620; 94640; 94760; 96361; 96365; 96366; 96374; 96375; A9500; J1650; J1940; J2270; J2405; J2785; J3490; J7030; J7620; J7626; Q9967; 99285-25